=== PATIENT | male | born 1980 | race Two or more races ===

== ENCOUNTER 2023-11-30 21:15 | Emergency (ER) | payer OTHER ==
[~2023-11-30] VITALS: Ht 152.4 cm; Wt 68.0 kg
[2023-11-30] MEDS ORDERED: ZYRTEC10 M3 PO (21:24)
[2023-11-30] MEDS ORDERED: KETOROLAC TROMETHAMINE 60 MG VIAL IM ONE (22:00)
[2023-12-01] MEDS ORDERED: KETO10TA2 PO (01:40)
[2023-12-01] MEDS ORDERED: NORFLEX100MG PO (01:40)
== END 2023-12-01 01:49 ==
LOC: ER 21:15
DX: S00.93XA Contusion of unspecified part of head, initial encounter (principal); S40.011A Contusion of right shoulder, initial encounter; S30.0XXA Contusion of lower back and pelvis, initial encounter; W17.89XA Other fall from one level to another, initial encounter; Y93.89 Activity, other specified; Y92.89 Other specified places as the place of occurrence of the external cause; Y99.9 Unspecified external cause status

== ENCOUNTER 2023-12-02 12:29 | Emergency (ER) | payer OTHER ==
[~2023-12-02] VITALS: Ht 152.4 cm; Wt 68.0 kg
[~2023-12-02 12:29] MED LIST: KETO10TA2 PO; NORFLEX100MG PO; ZYRTEC10 M3 PO
[2023-12-02] MEDS ORDERED: DEXAMETHASONE 4 MG TABLET PO STA (15:34)
[2023-12-02] MEDS ORDERED: DEXAMETHASONE SODIUM PHOSPHATE 4 MG/ML VIAL ONE (15:47)
[2023-12-02] MEDS ORDERED: DEXAMETHASONE SODIUM PHOSPHATE 4 MG/ML VIAL IM STA (16:09)
== END 2023-12-02 16:11 | disposition home or self-care (01) ==
LOC: ER 12:30
DX: S09.90XA Unspecified injury of head, initial encounter (principal); S30.1XXA Contusion of abdominal wall, initial encounter; T14.8XXA Other injury of unspecified body region, initial encounter; W19.XXXA Unspecified fall, initial encounter; Y93.89 Activity, other specified; Y92.69 Other specified industrial and construction area as the place of occurrence of the external cause; Y99.8 Other external cause status